=== PATIENT | male | born 1935 | race Caucasian/White ===

== ENCOUNTER 2016-09-27 14:35 | Emergency (ER) | payer OTHER ==
[2016-09-27 14:44] VITALS: RESP 16; TEMP 97.5
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
[2016-09-27 16:00] LABS: % IMMATURE GRANULYOCYTES 1.1 % (0.0-1.1); ABSOLUTE IMMATURE GRANULOCYTES 0.06 10^3/uL (0.00-0.10); ADD DIFF? NO; ADD MORPH? NO; ADD SCAN? NO; ATYPICAL LYMPHOCYTE FLAG 10 (0-99); FRAGMENT RBC FLAG 0 (0-99); HEMATOCRIT 36.4 % (40.0-51.0); HEMOGLOBIN 13.2 g/dL (13.7-17.5); LEFT SHIFT FLG 10 (0-99); LIPEMIA HEMOLYSIS FLAG 90 (0-99); MEAN CELL HEMOGLOBIN 35.4 pg (27.9-34.1); MEAN CELL HEMOGLOBIN CONCENTR. 36.3 g/dL (32.4-36.7); MEAN CELL VOLUME 97.6 fL (81.5-99.8); MEAN PLATELET VOLUME 9.4 fL (8.7-11.7); PLATELET CLUMPS FLAG 0 (0-99); PLATELET COUNT 154 10^3/uL (150-400); RED BLOOD CELL COUNT 3.73 10^6/uL (4.40-6.38); RED CELL DISTRIBUTION WIDTH 12.2 % (11.5-15.2)
[2016-09-27 16:25] LABS: ANION GAP 11 mEq/L (8-16); CALCIUM 9.3 mg/dL (8.5-10.4); CARBON DIOXIDE 24 mEq/l (22-31); CHLORIDE 98 mEq/L (97-110); CREATININE 0.7 mg/dL (0.7-1.3); GLOMERULAR FILTRATION RATE > 60; GLUCOSE 131 mg/dL (70-100); POTASSIUM 4.4 mEq/L (3.5-5.2); SODIUM 133 mEq/L (134-144)
--- NOTE | 2016-09-27 17:53 | MR ---
MRI of the Brain (Without Contrast) September 27, 2016 Clinical Indication: Acute leg weakness, evaluate for possible CVA.. Technique: T1-weighted images were acquired axially and sagittally from the foramen magnum to the ve rtex. Axial FLAIR, fast T2-weighted, and diffusion-weighted axial images were obtained without contr ast. Findings: Marked underlying cerebral and cerebellar atrophy is present, associated with periventricul ar white matter microvascular ischemic gliosis.. No evidence of acute cortical ischemia on diffusion- weighted imaging. No evidence of mass or mass effect or intracranial hemorrhage. Craniocervical junct ion and skull base appear normal. Chronic mucoperiosteal thickening within the posterior sphenoid sin us is compatible with chronic paranasal sinus disease. Carotid and vertebral basilar flow voids are i dentified. IMPRESSION: 1. Underlying atrophy and white matter microvascular ischemic gliosis, without acute cortical ischemi a. 2. Chronic mucoperiosteal thickening within the posterior sphenoid sinus. Results called to Dr. Fitz Forrest at 17:50.
[2016-09-27 18:41] VITALS: BP 162/100; PULSE 75; O2SAT 95
== END 2016-09-27 18:41 | disposition home or self-care (01) ==
DX: M62.81 Muscle weakness (generalized) (principal); E11.9 Type 2 diabetes mellitus without complications; Z85.46 Personal history of malignant neoplasm of prostate; Z79.82 Long term (current) use of aspirin

== ENCOUNTER → 2016-10-12 | Outpatient (CLI) | payer OTHER ==
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
== END ==
LOC: FIMAGING 08:37
PROVIDERS: ATTEND Specialist
DX: Z85.46 Personal history of malignant neoplasm of prostate (principal); R97.20 Elevated prostate specific antigen [PSA]; Z90.79 Acquired absence of other genital organ(s); R93.8 Abnormal findings on diagnostic imaging of other specified body structures; M17.12 Unilateral primary osteoarthritis, left knee
CPT/HCPCS: 78306; A9503

== ENCOUNTER 2016-11-25 07:25 | Day surgery (SDC) | payer OTHER ==
[2016-11-25] MEDS ORDERED: FLUMAZENIL 0.5 MG/5 ML MDV IVP ONE (07:53)
[2016-11-25] MEDS ORDERED: NALOXONE HCL 0.4 MG/ML INJ ONE (07:53)
[2016-11-25] MEDS ORDERED: fentaNYL 100 MCG/2 ML INJ ONE (07:54)
[2016-11-25] MEDS ORDERED: ONDANSETRON 4 MG/2 ML VIAL ONE (07:54)
[2016-11-25] MEDS ORDERED: MIDAZOLAM 2 MG/2 ML VIAL ONE ×2 (07:54)
[2016-11-25] MEDS ORDERED: LIDOCAINE 1% 30 ML SDV ONE (09:09)
[2016-11-25] MEDS ORDERED: HEPARIN 50,000 UNIT/10 ML VIAL ONE (09:09)
--- NOTE | 2016-11-25 11:08 | CPEKG ---
Heart Rate: 66 RR Interval: 909 P-R Interval: 276 QRSD Interval: 144 QT Interval: 500 QTC Interval: 524 P [place]: -56 QRS [place]: -45 EKG Severity - ABNORMAL ECG - EKG Impression: SINUS OR ECTOPIC ATRIAL RHYTHM EKG Impression: MOBITZ II AV BLOCK EKG Impression: FIRST DEGREE AV BLOCK EKG Impression: LEFT BUNDLE BRANCH BLOCK Electronically Signed By: Jose Enrique Hammond 25-Nov-2016 14:26:22
== END 2016-11-25 12:55 | disposition home or self-care (01) ==
LOC: FIMAGING 07:25
PROVIDERS: ATTEND Specialist
PROC: 02H633Z Insertion of Infusion Device into Right Atrium, Percutaneous Approach (ICD-10-PCS; principal; 2016-11-25 10:30)
DX: Z45.2 Encounter for adjustment and management of vascular access device (principal); C61 Malignant neoplasm of prostate; I44.1 Atrioventricular block, second degree
CPT/HCPCS: C1750; J1644; J2250; J2310; J2405; J3010

== ENCOUNTER → 2017-01-02 | Day surgery (SDC) | payer OTHER ==
[~2017-01-02] MED LIST: LIDOCAINE 1% 30 ML SDV ONE; MIDAZOLAM 2 MG/2 ML VIAL ONE; fentaNYL 100 MCG/2 ML INJ ONE
[2017-01-02 14:45] LABS: % IMMATURE GRANULYOCYTES 0.5 % (0.0-1.1); ABSOLUTE IMMATURE GRANULOCYTES 0.02 10^3/uL (0.00-0.10); ADD DIFF? NO; ADD MORPH? NO; ADD SCAN? NO; ATYPICAL LYMPHOCYTE FLAG 70 (0-99); FRAGMENT RBC FLAG 0 (0-99); HEMATOCRIT 34.1 % (40.0-51.0); HEMOGLOBIN 12.3 g/dL (13.7-17.5); LEFT SHIFT FLG 0 (0-99); LIPEMIA HEMOLYSIS FLAG 90 (0-99); MEAN CELL HEMOGLOBIN 36.4 pg (27.9-34.1); MEAN CELL HEMOGLOBIN CONCENTR. 36.1 g/dL (32.4-36.7); MEAN CELL VOLUME 100.9 fL (81.5-99.8); MEAN PLATELET VOLUME 9.8 fL (8.7-11.7); PLATELET CLUMPS FLAG 0 (0-99); PLATELET COUNT 133 10^3/uL (150-400); RED BLOOD CELL COUNT 3.38 10^6/uL (4.40-6.38); RED CELL DISTRIBUTION WIDTH 12.2 % (11.5-15.2)
[2017-01-02 15:07] LABS: ALANINE AMINOTRANSFERASE 62 IU/L (21-72); ALBUMIN 3.7 g/dL (3.5-5.0); ALKALINE PHOSPHATASE 58 IU/L (38-126); ANION GAP 10 mEq/L (8-16); ASPARTATE AMINOTRANSFERASE 59 IU/L (17-59); BILIRUBIN,TOTAL 1.3 mg/dL (0.1-1.4); CALCIUM 9.3 mg/dL (8.5-10.4); CARBON DIOXIDE 24 mEq/l (22-31); CHLORIDE 100 mEq/L (97-110); CREATININE 0.7 mg/dL (0.7-1.3); GLOMERULAR FILTRATION RATE > 60; GLUCOSE 95 mg/dL (70-100); SODIUM 134 mEq/L (134-144); TOTAL PROTEIN 6.4 g/dL (6.3-8.2)
== END | disposition home or self-care (01) ==
LOC: FIMAGING 12:41
PROVIDERS: ATTEND Radiology Diagnostic Radiology
PROC: 0JPTX3Z Removal of Infusion Device from Trunk Subcutaneous Tissue and Fascia, External Approach (ICD-10-PCS; principal; 2017-01-02)
DX: Z49.01 Encounter for fitting and adjustment of extracorporeal dialysis catheter (principal)
CPT/HCPCS: G0103; J2250; J3010

== ENCOUNTER → 2017-01-06 | Outpatient (CLI) | payer OTHER | LOC: BHFA 10:00 | PROVIDERS: ATTEND Internal Medicine Cardiovascular Disease | DX: R94.31 Abnormal electrocardiogram [ECG] [EKG] (principal) ==

== ENCOUNTER → 2017-01-18 | Outpatient (CLI) | payer OTHER | LOC: BHFA 09:45 | PROVIDERS: ATTEND Internal Medicine Cardiovascular Disease | DX: R94.31 Abnormal electrocardiogram [ECG] [EKG] (principal); I44.7 Left bundle-branch block, unspecified ==

== ENCOUNTER 2017-03-29 20:05 | Emergency (ER) | payer OTHER ==
[2017-03-29] MEDS ORDERED: NS 1,000 ML IV ONE ×2 (20:11→20:29)
[2017-03-29 20:16] VITALS: RESP 16; TEMP 97.3
[2017-03-29 20:17] LABS: % IMMATURE GRANULYOCYTES 0.8 % (0.0-1.1); ABSOLUTE IMMATURE GRANULOCYTES 0.03 10^3/uL (0.00-0.10); ADD DIFF? NO; ADD MORPH? NO; ADD SCAN? NO; ATYPICAL LYMPHOCYTE FLAG 0 (0-99); FRAGMENT RBC FLAG 0 (0-99); HEMOGLOBIN 12.9 g/dL (13.7-17.5); LEFT SHIFT FLG 0 (0-99); LIPEMIA HEMOLYSIS FLAG 90 (0-99); MEAN CELL HEMOGLOBIN 35.2 pg (27.9-34.1); MEAN CELL HEMOGLOBIN CONCENTR. 35.8 g/dL (32.4-36.7); MEAN CELL VOLUME 98.4 fL (81.5-99.8); MEAN PLATELET VOLUME 9.6 fL (8.7-11.7); PLATELET CLUMPS FLAG 0 (0-99); PLATELET COUNT 165 10^3/uL (150-400); RED BLOOD CELL COUNT 3.66 10^6/uL (4.40-6.38); RED CELL DISTRIBUTION WIDTH 13.4 % (11.5-15.2)
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
[2017-03-29 20:38] LABS: ANION GAP 17 mEq/L (8-16); CALCIUM 9.4 mg/dL (8.5-10.4); CARBON DIOXIDE 18 mEq/l (22-31); CHLORIDE 98 mEq/L (97-110); CREATININE 0.7 mg/dL (0.7-1.3); GLOMERULAR FILTRATION RATE > 60; GLUCOSE 238 mg/dL (70-100); POTASSIUM 4.1 mEq/L (3.5-5.2); SODIUM 133 mEq/L (134-144)
[2017-03-29 20:52] LABS: ETHANOL SERUM 142 mg/dL (0-10)
--- NOTE | 2017-03-29 20:58 | CPEKG ---
Heart Rate: 64 RR Interval: 938 QRSD Interval: 150 QT Interval: 504 QTC Interval: 520 P [place]: 0 QRS [place]: -42 T Wave [place]: 130 EKG Severity - ABNORMAL ECG - EKG Impression: SINUS RHYTHM EKG Impression: MOBITZ I AV BLOCK ([place]) EKG Impression: LEFT BUNDLE BRANCH BLOCK Electronically Signed By: Luiz Castro 29-Mar-2017 23:04:14
[2017-03-29 22:06] VITALS: BP 150/81; PULSE 53; O2SAT 95
== END 2017-03-29 22:15 | disposition home or self-care (01) ==
LOC: EDUNIT#
DX: R55 Syncope and collapse (principal); E86.0 Dehydration; E11.9 Type 2 diabetes mellitus without complications; I10 Essential (primary) hypertension; E86.9 Volume depletion, unspecified; Z79.82 Long term (current) use of aspirin; Z79.84 Long term (current) use of oral hypoglycemic drugs; Z85.46 Personal history of malignant neoplasm of prostate; Z87.891 Personal history of nicotine dependence
CPT/HCPCS: G0480

== ENCOUNTER → 2017-04-03 | Outpatient (CLI) | payer OTHER | LOC: FIMAGING 10:00 | PROVIDERS: ATTEND Specialist | DX: C79.51 Secondary malignant neoplasm of bone (principal); C61 Malignant neoplasm of prostate | CPT/HCPCS: 78306; A9503 ==

== ENCOUNTER → 2017-04-21 | Outpatient (CLI) | payer OTHER | LOC: BHFA 11:30 | PROVIDERS: ATTEND Internal Medicine Cardiovascular Disease | DX: I44.7 Left bundle-branch block, unspecified (principal); R55 Syncope and collapse ==

== ENCOUNTER → 2017-06-17 | Outpatient (CLI) | payer OTHER | LOC: FIMAGING 09:39 | PROVIDERS: ATTEND Specialist | DX: M48.54XA Collapsed vertebra, not elsewhere classified, thoracic region, initial encounter for fracture (principal); Z85.46 Personal history of malignant neoplasm of prostate; C79.51 Secondary malignant neoplasm of bone; M51.36 Other intervertebral disc degeneration, lumbar region ==